=== PATIENT | female | born 1980 | race Caucasian/White ===

== ENCOUNTER 2021-07-21 09:09 | Outpatient (CLI) | payer SELFPAY ==
[~2021-07-21] VITALS: Ht 170.2 cm; Wt 111.3 kg
[~2021-07-21 09:09] MED LIST: AMOXICILLIN 50500 MG PO; BIRTH CONTROL PILLS; IOPHEN DM NR PO; MULTIPLE VITAMI1 CAP PO; NORCO 325 MG-51 TAB PO; OMNICEF 300MG300 MG PO; PERCOCET 325 MG1 TA2 PO; TUSS PO
[2021-07-21 10:15] VITALS: BP 144/99; PULSE 88; TEMP 97.8
[2021-07-21] MEDS ORDERED: ADIPEX-P37.5 MG PO (10:29)
[2021-07-21 10:30] VITALS: BP 146/87; PULSE 79
[2021-07-21 11:00] VITALS: BP 163/96; PULSE 78
[2021-07-21 11:30] VITALS: BP 149/91; PULSE 73
== END 2021-07-21 14:37 ==
LOC: EUO 09:09
DX: U07.1 COVID-19 (principal); E66.9 Obesity, unspecified
CPT/HCPCS: M0245

== ENCOUNTER 2021-07-30 23:43 | Observation (INO) | payer SELFPAY ==
[~2021-07-30] VITALS: Ht 170.2 cm; Wt 112.7 kg
[~2021-07-30 23:43] MED LIST changes: +ADIPEX-P37.5 MG PO
[2021-07-31] VITALS (11 sets, daily range): BP systolic 122–157; BP diastolic 54–92; PULSE 81–92; TEMP 97.8–98.9
[2021-07-31 00:39] LABS: BASO # 0.1 K/mm3 (0.0-0.2); BASO % 0.5 % (0.0-2.0); EOS # 0.4 K/mm3 (0.0-0.7); EOS % 3.1 % (0.0-4.0); GRAN # 8.7 K/mm3 (1.4-6.5); GRAN % 68.4 % (42.2-75.2); HEMATOCRIT 41.2 % (37.0-47.0); HEMOGLOBIN 14.4 g/dl (12.5-16.0); LYMPH # 2.4 K/mm3 (1.2-3.4); LYMPH % 19.1 % (20.0-51.0); MEAN CELL VOLUME 88 fl (80.0-100.0); MEAN CORPUSCULAR HEMOGLOBIN 31 pg (27-31); MEAN CORPUSCULAR HGB CONC 35 g/dl (33.0-37.0); MEAN PLATELET VOLUME 9.8 fl (7.4-10.4); MONO # 1.1 K/mm3 (0.1-0.6); MONO % 8.4 % (1.7-9.3); PLATELET COUNT 386 K/mm3 (130-400); RED BLOOD COUNT 4.69 M/mm3 (4.10-5.30); REDCELL DISTRIBUTION WIDTH-CV 12.2 % (11.5-14.5)
[2021-07-31 00:53] LABS: ALBUMIN 3.9 gm/dL (3.5-5.0); C-REACTIVE PROTEIN 2.53 mg/dL (0.00-0.50); CALCIUM 9.1 mg/dL (8.4-10.2); CREATININE, serum 0.69 mg/dL (0.57-1.11); POTASSIUM 4.8 mmol/L (3.5-4.5); TOTAL PROTEIN 7.7 gm/dL (6.2-8.1)
[2021-07-31 01:20] LABS: BILIRUBIN,TOTAL 0.7 mg/dL (0.2-1.2)
[2021-07-31 01:34] LABS: COLLECTION METHOD CLEAN CATCH
[2021-07-31 01:42] LABS: MUCOUS Present (NOT PRESENT); PH 6 (5-8); SQUAMOUS EPITHELIAL 0-2 /hpf (0-10); URINE APPEARANCE Clear (CLEAR/HAZY); URINE BACTERIA None Seen /hpf (NONE SEEN); URINE BILIRUBIN Negative (NEGATIVE); URINE BLOOD Negative (NEGATIVE); URINE COLOR Straw (YELLOW); URINE GLUCOSE Negative (NEGATIVE); URINE KETONE Negative (NEGATIVE); URINE LEUKOCYTE ESTERASE Negative (NEGATIVE); URINE NITRATE Negative (NEGATIVE); URINE PROTEIN(semi-quant) Negative (NEGATIVE); URINE RBC 0-2 /hpf (0-2); URINE UROBILINOGEN Negative (NEGATIVE)
--- NOTE | 2021-07-31 02:43 | NUR ---
PT ARRIVES VIA CART TO ROOM 342. IS ALERT AND ORIENTED X4. HAS IVF TO RT AC INFUSING WITHOUT PROBLEM.
--- NOTE | 2021-07-31 03:16 | NUR ---
DR LOPEZ NOTIFIED OF PTS PAIN, INCREASED MORPHINE TO 4MG IV PRN Q2H. DOSE GIVEN AT THIS TIME.
--- NOTE | 2021-07-31 05:11 | NUR ---
REPORTS PAIN TO RUQ HAS RETURNED 03/01. MEDICATED WITH MORPHINE 4MG IVP AT THIS TIME. REPORTS GOOD PAIN REDUCTION WITH PREVIOUS DOSE OF IV MORPHINE 4MG.
--- NOTE | 2021-07-31 08:00 | NUR ---
PATIENT IS A&O. VSS. C/O RIGHT UPPER ABD PAIN AND REQUESTING PAIN MEDS. GAVE PRN IV MORPHINE PER ORDERS. NO C/O N/V. NPO FOR POSSIBLE SURGERY. IV FLUIDS INFUSING VIA PUMP INTO RIGHT AC IV. ABD IS ROUND, SOFT AND WITH POSITIVE BOWL SOUNDS. INDEPENDENT IN ROOM. HEAD TO TOE ASSESSMENT COMPLETE. NO OTHER NEEDS AT THIS TIME. CALL LIGHT IN REACH.
[2021-07-31 10:49] LABS: ALBUMIN 3.4 gm/dL (3.5-5.0); BILIRUBIN,TOTAL 0.9 mg/dL (0.2-1.2); CALCIUM 8.4 mg/dL (8.4-10.2); CREATININE, serum 0.63 mg/dL (0.57-1.11); POTASSIUM 4.1 mmol/L (3.5-4.5); TOTAL PROTEIN 6.5 gm/dL (6.2-8.1)
--- NOTE | 2021-07-31 11:00 | NUR ---
NO HCG HAS BEEN OBTAIND, SEE ORDERS. UA GOING TO LAB
--- NOTE | 2021-07-31 11:10 | NUR ---
PATIENT GOING DOWN TO OR VIA BED.
--- NOTE | 2021-07-31 11:38 | NUR ---
Sw met with pt who stated preference to return once medically stable. The pt lives at home with spouse. The pt nk is, ela, mother [phone]. The pt states she independent on all adls and still drives and does not use any dme. the pt pcp is and gets medications from [facility]. Pt does not have a dpoa-hc and is not interested at this time. D/c: home.
[2021-07-31] MEDS ORDERED: AMOXICILLIN 8751 TAB PO (13:29)
[2021-07-31] MEDS ORDERED: IBU600 MG PO (13:31)
[2021-07-31] MEDS ORDERED: PERCOCET 325 MG1 TA2 PO (13:31)
--- NOTE | 2021-07-31 21:00 | NUR ---
PT READY FOR DISCHARGE. ORDER TO D/C GIVEN BY DR LOPEZ. DC'D IV SITE FROM RT AC, ANGIOCATH INTACT. REVIEWED DISCHARGE INSTRUCTIONS WITH PT AND SPOUSE, COPY GIVEN TO PT. PT HAS EATEN, WALKED, VOIDED AND HAD BM TONIGHT. LAP SITES D/I WITH SKIN GLUE X5 SITES.
--- NOTE | 2021-07-31 21:20 | NUR ---
DC'D VIA W/C TO PRIVATE CAR. COPY OF DISCHARGE INSTRUCTIONS SENT WITH PATIENT WELL PERSONAL BELONGINGS.
== END 2021-07-31 21:20 | disposition home or self-care (01) ==
LOC: COL.ER 23:43 → SURG 07-31 01:50
PROVIDERS: Nurse Practitioner Primary Care; ADMIT Surgery
DX: K80.12 Calculus of gallbladder with acute and chronic cholecystitis without obstruction (principal); E66.01 Morbid (severe) obesity due to excess calories; F17.200 Nicotine dependence, unspecified, uncomplicated; Z79.899 Other long term (current) drug therapy
CPT/HCPCS: G0378; J0690; J1100; J1885; J2270; J2370; J2405; J2543; J2704; J3010; J7030; Q9967